=== PATIENT | male | born 1950 | race Caucasian/White ===

== ENCOUNTER 2018-05-16 17:14 | Inpatient (IN) | payer OTHER ==
[~2018-05-16] VITALS: Ht 167.6 cm; Wt 93.7 kg
[2018-05-16] MEDS ORDERED: METO25 PO (18:27)
[2018-05-16] MEDS ORDERED: LISI-660 PO (18:27)
[2018-05-16] MEDS ORDERED: METF500T6 PO (18:27)
[2018-05-16] MEDS ORDERED: GABA-531 PO (18:27)
[2018-05-16] MEDS ORDERED: APIX5TAB PO (18:27)
[2018-05-16 18:34] LABS: GLUCOSE,POINT OF CARE 278 MG/DL (70-110)
[2018-05-16 18:49] LABS: BASOPHILS % (AUTO) 1.6 % (0.0-2.0); HEMATOCRIT 41.3 % (41-53); HEMOGLOBIN 14.3 g/dL (13.5-17.5); MEAN CORPUSCULAR HEMOGLOBIN 31.6 pg (26.0-34.0); MEAN CORPUSCULAR HGB CONC 34.7 G/dL (31.0-37.0); MEAN CORPUSCULAR VOLUME 91 fL (80-100); MONOCYTES # (AUTO) 0.5 K/uL (0.1-1.0); MONOCYTES % (AUTO) 8.6 % (2.0-9.0); NEUTROPHILS # (AUTO) 3.1 K/uL (1.8-7.7); NEUTROPHILS % (AUTO) 52.8 % (40.0-70.0); PLATELET COUNT (AUTO) 289 K/uL (150-450); RED BLOOD CELL COUNT(AUTO) 4.54 MIL/uL (4.50-5.90); RED CELL DISTRIBUTION WIDTH 13.1 % (11.5-14.5)
[2018-05-16 19:04] LABS: ANION GAP 10 mmol/L (8-16); CALCIUM, TOTAL 8.7 mg/dL (8.8-10.5); CARBON DIOXIDE 25 mmol/L (22-29); CHLORIDE 101 mmol/L (98-107); CREATININE 0.75 mg/dL (0.60-1.30); GLOMERULAR FILTR. RATE CALC > 60 mL/min (>60); GLUCOSE,RANDOM 248 mg/dL (70-110); POTASSIUM 3.6 mmol/L (3.5-5.1); SODIUM SERUM 136 mmol/L (136-145); UREA NITROGEN, BLOOD 11 mg/dL (7-18)
[2018-05-16 19:11] LABS: ALANINE AMINOTRANSFERASE 26 U/L (12-78); ALBUMIN 3.4 g/dL (3.4-5.0); ALKALINE PHOSPHATASE 88 U/L (46-116); ASPARTATE AMINOTRANSFERASE 15 U/L (15-37); BILIRUBIN,TOTAL 0.3 mg/dL (0.1-1.0)
[2018-05-17] VITALS (7 sets, daily range): BP systolic 104–139; BP diastolic 63–86
[2018-05-17] MEDS ORDERED: IPRATROPIUM BROMIDE 0.5 MG/2.5 ML NEB SOLUTION NEB PRN (00:15)
[2018-05-17] MEDS ORDERED: ALBUTEROL SULFATE 2.5 MG/0.5 ML NEB SOLUTION NEB PRN (00:15)
[2018-05-17] MEDS ORDERED: ONDANSETRON HCL 4 MG/2 ML VIAL IVP PRN (00:15)
[2018-05-17] MEDS ORDERED: ACETAMINOPHEN 325 MG TABLET PO PRN (00:15)
[2018-05-17] MEDS ORDERED: ZOLPIDEM TARTRATE 5 MG TABLET PO PRN (00:15)
[2018-05-17] MEDS ORDERED: MAGNESIUM HYDROXIDE SUSPENSION 30 ML UDCUP PO PRN (00:15)
[2018-05-17] MEDS ORDERED: DEXTROSE 50%-WATER 25 GM/50 ML SYRINGE IVP PRN (00:15)
[2018-05-17] MEDS ORDERED: BISACODYL 10 MG RECTAL RECTAL SUPPOSITORY PR PRN (00:15)
[2018-05-17] MEDS: INSULIN LISPRO 100 UNITS/ML SQ PRN ×3 (06:05→21:01)
[2018-05-17] MEDS: METOPROLOL TARTRATE 25 MG TABLET PO SCH ×2 (08:29→20:56)
[2018-05-17] MEDS: LISINOPRIL 5 MG TABLET PO SCH (08:29)
[2018-05-17] MEDS: PANTOPRAZOLE SODIUM 40 MG DR TABLET PO SCH (08:29)
[2018-05-17] MEDS: GABAPENTIN 300 MG CAPSULE PO SCH ×3 (08:29→20:56)
[2018-05-17] MEDS: MetFORMIN HCL 500 MG TABLET PO SCH ×2 (08:30→17:15)
[2018-05-17] MEDS ORDERED: APIXABAN 5 MG TABLET PO SCH (09:00)
[2018-05-17] MEDS ORDERED: HEPARIN SODIUM,PORCINE 5,000 UNITS/ML VIAL SQ SCH (09:00)
[2018-05-17 20:49] LABS: GLUCOMETER DEV NAME(LOC) 5S 1M; GLUCOSE,POINT OF CARE 225 MG/DL (70-110)
[2018-05-17] MEDS: APIXABAN 5 MG TABLET PO SCH (20:56)
[2018-05-17 23:28] LABS: GLUCOMETER DEV NAME(LOC) 5N 2S; GLUCOSE,POINT OF CARE 209 MG/DL (70-110)
[2018-05-17 23:28] LABS: GLUCOMETER DEV NAME(LOC) 5N 2S; GLUCOSE,POINT OF CARE 212 MG/DL (70-110)
[2018-05-17 23:28] LABS: GLUCOMETER DEV NAME(LOC) 5N 1P; GLUCOSE,POINT OF CARE 169 MG/DL (70-110)
[2018-05-18 05:02] VITALS: BP 116/60
[2018-05-18] MEDS: INSULIN LISPRO 100 UNITS/ML SQ PRN ×2 (05:36→12:14)
[2018-05-18 07:33] VITALS: BP 120/63
[2018-05-18] MEDS: MetFORMIN HCL 500 MG TABLET PO SCH ×2 (08:48→17:07)
[2018-05-18] MEDS: METOPROLOL TARTRATE 25 MG TABLET PO SCH (08:48)
[2018-05-18] MEDS: APIXABAN 5 MG TABLET PO SCH (08:49)
[2018-05-18] MEDS: GABAPENTIN 300 MG CAPSULE PO SCH ×2 (08:49→17:07)
[2018-05-18] MEDS: LISINOPRIL 5 MG TABLET PO SCH (08:49)
[2018-05-18] MEDS: PANTOPRAZOLE SODIUM 40 MG DR TABLET PO SCH (08:49)
[2018-05-18 11:08] VITALS: BP 135/84
[2018-05-18 11:39] LABS: GLUCOMETER DEV NAME(LOC) 5N 2S; GLUCOSE,POINT OF CARE 209 MG/DL (70-110)
[2018-05-18 11:39] LABS: GLUCOMETER DEV NAME(LOC) 5N 2S; GLUCOSE,POINT OF CARE 224 MG/DL (70-110)
[2018-05-18 16:27] VITALS: BP 129/78
[2018-05-19 07:28] LABS: GLUCOMETER DEV NAME(LOC) 5N 1P; GLUCOSE,POINT OF CARE 183 MG/DL (70-110)
== END 2018-05-18 18:30 | DRG 420 ==
LOC: EMS 17:16 → 5N 22:00 → UNDOADMIN 22:00 → 5S 22:00
PROVIDERS: ADMIT Internal Medicine; ATTEND Internal Medicine
DX: E11.65 Type 2 diabetes mellitus with hyperglycemia (principal); G82.20 Paraplegia, unspecified; I10 Essential (primary) hypertension; E86.0 Dehydration; I25.10 Atherosclerotic heart disease of native coronary artery without angina pectoris; Z79.4 Long term (current) use of insulin; Z79.899 Other long term (current) drug therapy
CPT/HCPCS: 99285; J1644